=== PATIENT | male | born 1985 | race Caucasian/White ===

== ENCOUNTER 2017-04-12 14:42 | Emergency (ER) | payer SELFPAY | END 2017-04-12 16:37 | disposition home or self-care (01) | LOC: D.ER 14:42 | DX: S00.01XA Abrasion of scalp, initial encounter (principal); V49.9XXA Car occupant (driver) (passenger) injured in unspecified traffic accident, initial encounter; Y93.89 Activity, other specified; Y92.410 Unspecified street and highway as the place of occurrence of the external cause; S00.93XA Contusion of unspecified part of head, initial encounter; S16.1XXA Strain of muscle, fascia and tendon at neck level, initial encounter; R51 Headache; M54.9 Dorsalgia, unspecified ==